=== PATIENT | female | born 1960 | race Caucasian/White ===

== ENCOUNTER 2018-12-20 10:50 | Inpatient (IN) | payer OTHER ==
[~2018-12-20] VITALS: Ht 160 cm; Wt 92.5 kg
--- NOTE | 2018-12-20 12:12 | NUR ---
NEW ADMIT. PATIENT DOES NOT HAVE INFO IN THEIR CHART TO ACCURATELY SCREEN (NO SAWYER SCORE, DIET, H/P...). PATIENT IS CATEGORIZED NUTRITION SCREEN DUE IN TWO DAYS AFTER ADMIT DATE. 12/22/18 LUPE GIBBONS MBA, RD
--- NOTE | 2018-12-20 12:20 | NUR ---
RECEIVED PT FOR DIRECT ADMIT FROM HOME. PT IN STABLE CONDITION. SAFETY MEASURE IN PLACE. BED IN LOW POSITION. CALL LIGHT AT BEDSIDE. WILL CONTINUE TO MONITOR.
--- NOTE | 2018-12-20 13:50 | NUR ---
MARIANO FROM DR. DSOUZA, CELIO HEP LOCK, CLEAR LIQUID DIET, MILK OF MAG 2TBS BID, CONTINUE HOME MEDS, CBC.
[2018-12-20] MEDS ORDERED: AMOX500C25 PO (14:35)
[2018-12-20] MEDS ORDERED: CIPR500T4 PO (14:35)
[2018-12-20] MEDS ORDERED: CARV12.5 PO (14:35)
[2018-12-20] MEDS ORDERED: ORE25 PO (14:35)
[2018-12-20] MEDS ORDERED: LOSA50TA66 PO (14:35)
[2018-12-20] MEDS ORDERED: PANT40EC PO (14:35)
--- NOTE | 2018-12-20 14:36 | NUR ---
HOME MEDICATIONS RECONCILED AT THIS TIME. MEDICATION BOTTLES RETURNED TO PT AT THIS TIME.
[2018-12-20 14:39] LABS: BASOPHILS # (AUTO) 0.1 K/uL (0.00-0.22); BASOPHILS % (AUTO) 0.9 % (0.0-2.0); EOSINOPHILS # (AUTO) 0.1 K/uL (0-0.4); EOSINOPHILS % (AUTO) 1.3 % (0.0-4.0); HEMATOCRIT 40.3 % (36-48); LYMPHOCYTES # (AUTO) 1.9 K/uL (2.5-16.5); LYMPHOCYTES % (AUTO) 21.3 % (20.5-51.1); MEAN CORPUSCULAR HEMOGLOBIN 28 pg (27-31); MEAN CORPUSCULAR HGB CONC 32 g/dL (33-37); MEAN CORPUSCULAR VOLUME 87.6 fL (80-94); MONOCYTES # (AUTO) 0.5 K/uL (0.8-1.0); MONOCYTES % (AUTO) 5.2 % (1.7-9.3); NEUTROPHILS # (AUTO) 6.4 K/uL (1.8-7.7); NEUTROPHILS % (AUTO) 71.3 % (42.2-75.2); PLATELET COUNT (AUTO) 225 K/uL (140-450); RED CELL DISTRIBUTION WIDTH 14.8 % (11.6-13.7)
[2018-12-20 16:00] VITALS: BP 163/72
--- NOTE | 2018-12-20 16:00 | NUR ---
PT LYING IN BED IN STABLE CONDITION. FAMILY AT BEDSIDE. WILL CONTINUE TO MONITOR.
--- NOTE | 2018-12-20 19:02 | NUR ---
WILL ENDORSE TO MILLWRIGHT SUPERVISOR NURSE FOR CONTINUITY OF CARE. PT IN STABLE CONDITION.
--- NOTE | 2018-12-20 19:03 | NUR ---
RECD. RESTING IN BED, AWAKE, A/OX4. RESPIRATION EVEN AND UNLABORED. IV SALINE LOCK AT THE LEFT AC G20 PATENT AND INTACT. PLAN OF CARE FOR THE SHIFT DISCUSSED WITH DAUGHTER AND PATIENT, BOTH VERBALIZED UNDERSTANDING. DENIES HAVING STOOL WITH BLOOD AT THIS TIME. DENIES PAIN 0/10.
[2018-12-20 20:00] VITALS: BP 158/76
--- NOTE | 2018-12-20 20:00 | NUR ---
INFORMED DR. DSOUZA, PATIENT DAUGHTER WANTS TO KNOW WHEN WILL HE COME TO SEE PATIENT. SPOKE WITH PATIENT DAUGHTER, WILL COME TOMORROW BETWEEN 0830 ANG 0900. IF LAB TEST ARE NORMAL, PATIENT WILL BE DISCHARGED HOME.
--- NOTE | 2018-12-20 20:00 | NUR ---
Patient's Plan of Care was discussed and reviewed with GLASS CLEANING MACHINE TENDER: CRISTOFER RIVERA.
[2018-12-20] MEDS: CARVEDILOL 12.5 MG TAB PO SCH (20:31)
[2018-12-20] MEDS: CIPROFLOXACIN 250 MG TAB PO SCH (20:32)
[2018-12-20] MEDS: AMOXICILLIN 500 MG CAP PO SCH (20:32)
[2018-12-20] MEDS ORDERED: MAGNESIUM HYDROXIDE 2400 MG/30 ML UDC PO ONE (21:00)
--- NOTE | 2018-12-20 21:27 | NUR ---
MEDICATED WITH MILK OF MAGNESIA ORDERED BY .
--- NOTE | 2018-12-20 23:00 | NUR ---
HAD SMALL AMOUNT OF LOOSE BM WITH BLOOD, APPROXIMATELY 20 ML.
[2018-12-21] VITALS: BP 156/70
--- NOTE | 2018-12-21 | NUR ---
HAD ANOTHER BM, MODERATE WITH SOME SMALL FORMED SOLIDS AND BLOOD TINGED LIQUIDS.
--- NOTE | 2018-12-21 03:30 | NUR ---
HAD LOOSE BM 100 ML, BROWNISH COLORED.
[2018-12-21 05:45] VITALS: BP 145/69
[2018-12-21 06:56] LABS: HEMATOCRIT 38.7 % (36-48); HEMOGLOBIN 12.7 g/dL (12.0-16.0)
--- NOTE | 2018-12-21 07:20 | NUR ---
CONDITION REMAIN STABLE. ENDORSED TO AM SHIFT NURSE FOR CONTINUITY OF CARE.
--- NOTE | 2018-12-21 07:21 | NUR ---
RECEIVED REPORT FROM SENIOR SYSTEMS DEVELOPER NURSE FOR CONTINUITY OF CARE. PT IN STABLE CONDITION. RESPIRATIONS EVEN AND UNLABORED. IV INTACT AND PATENT. SAFETY MEASURES IN PLACE. BED IN LOW POSITION. CALL LIGHT AT BEDSIDE. WILL CONTINUE TO MONITOR.
--- NOTE | 2018-12-21 07:45 | NUR ---
LOOSE BM BROWN IN COLOR NO BLOOD NOTED AT THIS TIME. WILL CONTINUE TO MONITOR.
[2018-12-21 08:00] VITALS: BP 140/71
--- NOTE | 2018-12-21 08:45 | NUR ---
TORD FROM DR. DSOUZA, PT TO CONTINUE HOME MEDICATIONS AND ABX. NOTIFY PT THAT THE USE OF PEPTO BISMOL WILL CHANGE STOOL COLOR. LOW SODIUM DIET.
[2018-12-21] MEDS ORDERED: PANTOPRAZOLE 40 MG TABEC PO SCH (09:00)
[2018-12-21] MEDS ORDERED: LOSARTAN 50 MG TAB PO SCH (09:00)
[2018-12-21] MEDS ORDERED: HYDROCHLOROTHIAZIDE 25 MG TAB PO SCH (09:00)
[2018-12-21] MEDS ORDERED: MAGNESIUM HYDROXIDE 2400 MG/30 ML UDC PO SCH (09:00)
[2018-12-21] MEDS: AMOXICILLIN 500 MG CAP PO SCH (09:20)
[2018-12-21] MEDS: CIPROFLOXACIN 250 MG TAB PO SCH (09:21)
[2018-12-21] MEDS: CARVEDILOL 12.5 MG TAB PO SCH (09:21)
--- NOTE | 2018-12-21 09:30 | NUR ---
GAVE ORDERED DUE MEDICATIONS. PT TOLERATED WELL. FAMILY AT BEDSIDE. BED IN LOW POSITION. WILL CONTINUE TO MONITOR.
--- NOTE | 2018-12-21 11:45 | NUR ---
GAVE DISCHARGE INSTRUCTIONS, PT VERBALIZED UNDERSTANDING OF INSTRUCTIONS. REMOVED IV, LUMEN INTACT. REMOVED ID BAND. PT WHEELED TO LOBBY IN WHEELCHAIR WITH BELONGINGS, WHERE FAMILY WERE WAITING WITH VEHICLE. PT IN STABLE CONDITION.
== END 2018-12-21 11:45 | disposition home or self-care (01) | DRG 392 ==
LOC: MTU 11:16
PROVIDERS: ADMIT Internal Medicine Gastroenterology; ATTEND Internal Medicine Gastroenterology
DX: R19.4 Change in bowel habit (principal); I10 Essential (primary) hypertension; E66.9 Obesity, unspecified; Z68.36 Body mass index [BMI] 36.0-36.9, adult
CPT/HCPCS: 36415; 85018; 85025